=== PATIENT | female | born 1965 | race Caucasian/White ===

== ENCOUNTER → 2020-10-11 13:03 | Outpatient (CLI) | payer BC, SELFPAY ==
--- NOTE | 2020-10-11 | DI.RAD.S_ITS ---
PROCEDURE: FL BARIUM SWALLOW W SPEECH INDICATIONS: Dysphagia, unspecified COMPARISON: None. TECHNIQUE: Examination was conducted in conjunction with speech pathology per standard protocol. In the lateral projection, filming was performed of the patient swallowing. AP projection filming may also be performed with patient swallowing. COMPARISON: FINDINGS: Function: The oral preparatory phase appears normal, with proper containment. The subsequent oral propulsive phase, pharyngeal phase, and esophageal phase of swallowing also appear normal with all proffered substances. No laryngotracheal penetration or aspiration. No pathologic vallecular pooling. Morphology: No cricopharyngeal bar is identified. No cervical esophageal webs. No Zenker's diverticulum. No strictures. IMPRESSION: No tracheal injury penetration or aspiration. Please see speech pathologist's report for detail. Dictated by: Daly Deluna M.D. on 10/11/2020 at 14:42 Approved by: Daly Deluna M.D. on 10/11/2020 at 14:43
--- NOTE | 2020-10-11 15:50 | ST.SWALLOW ---
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 She reports it feels like she is swallowing around something and it is worse with flat drier foods. She has a history of thyroid nodule since she was 18 and breast cancer in 2019. Subjective Observations Andreina arrived on time. She was alert, oriented and cooperative during the study. Patient Positioning Position View Lat-A/P Imaging Lateral View Textures Administered Trials Presented Thin Liquid via Spoon,Thin Liquid via Cup,[place] Liquid via Spoon,Honey Liquid via Spoon,Pudding Thick Liquid via Spoon,Regular Textures Oral Phase Source: MBSIMP (TM) (C) Bolus Specific Scoring Grid Lip Closure No Impairment (WNL) Tongue Control During Bolus Hold No Impairment (WNL) Bolus Prep/Mastication No Impairment (WNL) Bolus Transport/Lingual Motion No Impairment (WNL) Oral Residue Minimal Impairment Additional Oral Phase Observations Adequate lip closure without labial escape. Adequate tongue control during bolus hold. Timely and efficient chewing and mashing. Brisk tongue motion for bolus transport. A collection of residue was left in the oral cavity following the first swallow of the cookie. Trace residue lined the tongue following the second swallow of cookie. Initiation of the pharyngeal swallow was delayed on one cup sip of nectar thick liquids. The bolus head was in the valleculae at the time of swallow initiation. Initiation of pharyngeal swallow was timely for all other trials. Pharyngeal Phase Source: MBSIMP (TM) (C) Bolus Specific Scoring Grid Soft Palate Elevation No Impairment (WNL) Tongue Base Strength/Range of Motion No Impairment (WNL) Laryngeal Elevation Minimal Impairment Anterior Hyoid Movement No Impairment (WNL) Epiglottic Range of Motion No Impairment (WNL) Laryngeal Vestibular Closure No Impairment (WNL) Pharyngeal Stripping Wave No Impairment (WNL) Pharyngeal Contraction No Impairment (WNL) Upper Esophageal Sphincter Opening Minimal Impairment Additional Pharyngeal Phase Observations Adequate soft palate elevation . Partial approximation of arytenoids to epiglottic petiole, with complete epiglottic movement and complete laryngeal closure at the height of the swallow. No penetration or apsiration observed. Anterior hyoid excursion was complete. Pharyngeal stripping wave was present. Pharyngeal contraction was complete. There was partial distension of the pharyngoesophageal segment opening during trails of more viscous liquids. No obstruction of flow observed during the study. A collection of vallecular residue observed following cup sips of thin liquids. No pyriform sinus residue observed. A/P View Textures Administered Trials Presented [place] Liquid via Spoon, Pudding Thick Liquid via Spoon Esophageal Observations Esophageal Function Complete clearance Clinical Impressions Findings Swallow function appears within normal limits without significant impairment. No penetration or aspiration observed. No obvious cause of patient's symptoms identified. Patient Appropriate for Therapy No Recommendations Diet Liquids Order Thin Diet Order Regular Medication Recommendation As Tolerated Aspiration Precautions Recommended Precautions Upright at 90 Degrees,Small Bites/Sips Treatment Plan Recommended Referrals ENT Consult Compensatory Strategies Recommendations Small Bites and Sips,Alternate Liquids/Solids
== END ==
PROVIDERS: PCP Nurse Practitioner; Referring Provider Nurse Practitioner; Visit Provider Nurse Practitioner
DX: R13.10 Dysphagia, unspecified (principal)
CPT/HCPCS: 74230; 92611

== ENCOUNTER 2020-11-15 15:00 | Day surgery (SDC) | payer BC, SELFPAY ==
[2020-11-15] VITALS (8 sets, daily range): BP systolic 89–130; BP diastolic 44–84; PULSE 65–103; RESP 13–19; TEMP 36.2–37.4; O2SAT 95–100; BMI 25.8
--- NOTE | 2020-11-15 | PATH_ITS ---
[facility] Accession Number: [id number] . 01 Material submitted: . tongue - LEFT BASE OF TONGUE MASS . 01 Clinical history: . SDC . 02 Diagnosis: Left Base Of Tongue Mass: Positive for infiltrating malignant neoplasm. Outside consultation pending for further characterization ([facility], [place], [place]); results will be reported as an addendum. [facility] 11/16/2020 1447 Local . 02 Comment: As part of director quality systems, this case was reviewed by Drs. Poncho Serrano and Mela Dennis, who concur with the interpretation. . Results discussed with Dr. Delmer Caballero' triage nurse, on 11-16-20 at approximately 2:34 p.m. . 02 Electronically signed: . Blanca Valdez MD, Pathologist NPI- [id number] . 01 Gross description: . Received in formalin and labeled with left base of tongue mass are multiple pieces of callahan soft tissue measuring 0.7 x 0.6 x 0.3 to 0.3 x 0.2 x 0.1 cm. One larger piece of tissue is observed measuring 0.8 x 0.7 x 0.3 cm. The smaller pieces are entirely submitted in cassette A1. The larger piece is inked, trisected, and entirely submitted in cassette A2. ([id number]) /MRV 11/16/2020 1028 Local . 02 Pathologist provided ICD-10: C01, R22.1 . 02 CPT . 548142 Performed at: 01 [facility] [address] [place] [address] [address] [facility], [place], [place] [id number] MD Lupillo Campbell MD Phone: [phone] Performed at: 02 [facility] [address] [place] [id number] MD Mela Dennis MD Phone: [phone]
[2020-11-15] MEDS: LACTATED RINGERS 1,000 ML 42 ML IV ×2 (15:26→16:50)
--- NOTE | 2020-11-15 17:56 | PM.PREOP ---
Pre-operative Note COVID-19 COVID-19 status: Result pending Interval Note History & Physical reviewed/Exam performed by Physician: Yes Changes to H&P: No
--- NOTE | 2020-11-15 17:58 | PM.OP.1 ---
Operative Date/Time/Diagnoses Date of procedure: 11/15/20 Time of procedure: 18:30 Pre-op diagnosis: Left tongue base mass, left otalgia, history of breast cancer Post-op diagnosis: same Procedure & Clinicians Procedure: Direct laryngoscopy with biopsy Same procedure as scheduled: Yes Indications: 55-year-old female with history of breast carcinoma completed XRT 1 year ago, presented to clinic yesterday with progressive mild dysphagia and fullness sensation along with left otalgia. A left tongue base mass was identified. Following discussion of the material risks benefits complications and alternatives, she elected to proceed with direct laryngoscopy and biopsy of the mass. Surgeon: Delmer Thacker Click Yes if Unassisted: Yes Anesthesia Type: General Operative Notes Findings: 2-3cm rounded palpable irregular mass LEFT BOT, min bleeding, fairly discreet palpable edges. No other abnormality seen. Closure Type: not applicable Specimen(s): other (Left base of tongue mass) Estimated Blood Loss (mL): 1 Blood products transfused: none Procedure in detail: Following identification and confirmation of consent, she was brought to the operating room suite and placed in the supine position. General endotracheal anesthesia was administered. The table was turned right side out. I performed a manual digital exam of the oral cavity, oropharynx, hypopharynx. An upper tooth guard was placed. The lubricated laryngoscope was placed through the right side of the mouth with the above findings noted. Multiple cup forceps biopsies of the left tongue base were performed, with min pressure with a cotton pledget for hemostasis. Tolerated the procedure well without complication. Extubated in the operating room and taken to recovery room in stable condition Complications: none Post-operative Condition: stable Disposition: same day surgery Plan for aftercare: Tylenol alternating with Advil for pain control every 3 hours if necessary, ice liquids for any bleeding. Call with any questions.
--- NOTE | 2020-11-15 18:19 | SUR.OPER ---
Supine on padded OR bed, head on pillow, arms secured on padded arm boards at <90 degrees abduction, legs uncrossed, safety belt at thigh, tape over blanket over lower legs.
== END 2020-11-15 19:16 | disposition home or self-care (01) ==
PROVIDERS: PCP Nurse Practitioner; Referring Provider Otolaryngology; Visit Provider Otolaryngology
PROC: 0CJS8ZZ Inspection of Larynx, Via Natural or Artificial Opening Endoscopic (ICD-10-PCS; CPT 31535; principal; 2020-11-15 16:15)
DX: C01 Malignant neoplasm of base of tongue (principal); H92.02 Otalgia, left ear; Z85.3 Personal history of malignant neoplasm of breast; E07.9 Disorder of thyroid, unspecified
CPT/HCPCS: 31535; A9270; J0330; J1100; J2250; J2405; J2704; J3010